=== PATIENT | female | born 1995 | race Caucasian/White ===

== ENCOUNTER 2016-10-17 10:06 | Emergency (ER) | payer MEDICAID ==
[2016-10-17 10:10] VITALS: RESP 20
--- NOTE | 2016-10-17 11:24 | C.PDOC ---
History Of Present Illness 21 yr old female with PMHx of depression presents to the ER c/o feeling depressed, not eating regularly, decreased sleeping and left upper abdominal pain for the past few days. Patient states she has kadie similar abdominal pain when she previously experienced depression/did not eat properly. Patient denies SI, HI, drug/alcohol use, chest pain, SOB, nausea or vomiting. Time Seen by Provider: 10/17/16 10:13 Chief Complaint (Nursing): Psychiatric Evaluation History Per: Patient History/Exam Limitations: no limitations Onset/Duration Of Symptoms: Days Suicide/Self Injury Attempted (Context): None Modifying Factor(s): None Severity: Mild Involuntary Hold By: None Past Medical History Reviewed: Historical Data, Nursing Documentation, Vital Signs Vital Signs: Last Vital Signs Temp 98.2 F 10/17/16 11:28 Pulse 80 10/17/16 11:28 Resp 20 10/17/16 11:28 BP 120/79 10/17/16 11:28 Pulse Ox 100 10/17/16 11:34 - Medical History PMH: No Chronic Diseases Family History: States: No Known Family Hx - Social History Hx Tobacco Use: No Hx Alcohol Use: No Hx Substance Use: Yes (marijuana) - Immunization History Hx Tetanus Toxoid Vaccination: Yes Hx Influenza Vaccination: Yes Hx Pneumococcal Vaccination: Yes Review Of Systems Except As Marked, All Systems Reviewed And Found Negative. Constitutional: Negative for: Fever, Chills Cardiovascular: Negative for: Chest Pain, Palpitations Respiratory: Negative for: Cough, Shortness of Breath Gastrointestinal: Negative for: Nausea, Vomiting Psych: Positive for: Depression. Negative for: Suicidal ideation, Withdrawal Physical Exam - Physical Exam Appears: Well, Non-toxic, No Acute Distress Skin: Warm, Dry, No Rash Head: Normacephalic Oral Mucosa: Moist Cardiovascular: Rhythm Regular Respiratory: Normal Breath Sounds, No Rales, No Rhonchi, No Wheezing Gastrointestinal/Abdominal: Normal Exam, Bowel Sounds, Soft, No Tenderness Extremity: Normal ROM, No Swelling Neurological/Psych: Oriented x3 ED Course And Treatment O2 Sat by Pulse Oximetry: 100 (RA ) Pulse Ox Interpretation: Normal Progress Note: Patient seen/evaluated by crisis counselor Rashad, and scheduled for outpatient psychiatric follow up. Patient understands follow up plan and that she should return to ED if her symptoms worsen. Reevaluation Time: 11:30 Reassessment Condition: Improved Disposition Counseled Patient/Family Regarding: Diagnosis, Need For Followup - Disposition Referrals: Tanmay Starr MD [Staff Provider] - Disposition: HOME/ ROUTINE Disposition Time: 11:30 Condition: STABLE Additional Instructions: FOLLOW UP WITH PSYCHIATRY SCHEDULED RETURN TO EMERGENCY ROOM IF YOU HAVE CONCERNING SYMPTOMS Instructions: Depression (ED) Forms: [employer] (Kuwaiti) Print Language: PASHTO - Clinical Impression Clinical Impression: Depression - Scribe Statement The provider has reviewed the documentation as recorded by the Jasibe Deneen Alves Provider Attestation: All medical record entries made by the Jasibcecy were at my direction and personally dictated by me. I have reviewed the chart and agree that the record accurately reflects my personal performance of the history, physical exam, medical decision making, and the department course for this patient. I have also personally directed, reviewed, and agree with the discharge instructions and disposition.
[2016-10-17 11:29] VITALS: BP 120/79; PULSE 80; TEMP 98.2
[2016-10-17 11:30] VITALS: O2SAT 100
== END 2016-10-17 11:31 | disposition home or self-care (01) ==
LOC: C.ER 10:06
DX: F32.89 Other specified depressive episodes (principal)

== ENCOUNTER 2017-02-12 09:23 | Emergency (ER) | payer MEDICAID ==
[2017-02-12] MEDS ORDERED: Sodium Chloride 0.9% 1,000 ML IV ONE (10:42)
[2017-02-12] MEDS ORDERED: Sodium Chloride 0.9% 1,000 ML ONE (10:48)
--- NOTE | 2017-02-12 10:53 | C.PDOC ---
History Of Present Illness 21 year old female presents to the ED c/o flu like symptoms, abdominal pain along with vomit that started yesterday. Patient reports she is currently being treated for URI. Patient denies fever, chills, back pain, dysuria, hematuria, back pain, CP, SOB. Time Seen by Provider: 02/12/17 09:55 Chief Complaint (Nursing): Flu-like Symptoms History Per: Patient History/Exam Limitations: no limitations Onset/Duration Of Symptoms: Days Current Symptoms Are (Timing): Still Present Location Of Pain: Diffuse Myalgias Sick Contacts (Context): None Associated Symptoms: Vomiting Severity: None Recent travel outside of the [place]: No Additional History Per: Patient Past Medical History Reviewed: Historical Data, Nursing Documentation, Vital Signs Vital Signs: Last Vital Signs Temp 98.4 F 02/12/17 12:12 Pulse 99 H 02/12/17 12:12 Resp 20 02/12/17 12:12 BP 100/65 02/12/17 12:12 Pulse Ox 99 02/12/17 12:12 - Medical History PMH: No Chronic Diseases Denies: Diabetes, Hepatitis, HIV, HTN, Seizures, Sexually Transmitted Disease Surgical History: No Surg Hx Family History: States: Unknown Family Hx - Social History Hx Tobacco Use: No Hx Alcohol Use: No Hx Substance Use: Yes (marijuana) - Immunization History Hx Tetanus Toxoid Vaccination: Yes Hx Influenza Vaccination: Yes Hx Pneumococcal Vaccination: Yes Review Of Systems Constitutional: Negative for: Fever, Chills Cardiovascular: Negative for: Chest Pain Respiratory: Negative for: Cough, Shortness of Breath Gastrointestinal: Positive for: Vomiting, Abdominal Pain Genitourinary: Negative for: Dysuria, Hematuria, Vaginal Discharge, Vaginal Bleeding Musculoskeletal: Negative for: Back Pain Skin: Negative for: Rash Neurological: Negative for: Weakness, Numbness Physical Exam - Physical Exam Appears: Non-toxic, No Acute Distress Skin: Normal Color, Warm, Dry Head: Atraumatic, Normacephalic Nose: No Discharge, No Deformity Oral Mucosa: Moist Neck: Normal ROM, Supple Chest: Symmetrical Cardiovascular: Rhythm Regular, No Murmur Respiratory: Normal Breath Sounds, No Rales, No Rhonchi, No Wheezing Gastrointestinal/Abdominal: Soft, No Tenderness, No Distention, No Rebound Extremity: Normal ROM, No Pedal Edema, No Calf Tenderness, No Swelling Neurological/Psych: Oriented x3, Normal Speech, Normal Cognition Gait: Steady ED Course And Treatment - Laboratory Results Result Diagrams: 02/12/17 11:03 02/12/17 11:06 Lab Interpretation: Normal Urine POC: Negative O2 Sat by Pulse Oximetry: 100 (On RA) Pulse Ox Interpretation: Normal Progress Note: Treated with IVF NSS, zofran and toradol. On re-evaluation abdomen soft non-tender Reassessment Condition: Improved Medical Decision Making Medical Decision Making: Impression : flu like symptoms Plan: * Blood work * IV fluids * Zofran 4 mg IVP * Toradol 30 mg IVP * UA On reevaluation patient states feeling much better, is stable for d/c and will be given instructions to follow up with PMD. Disposition Counseled Patient/Family Regarding: Studies Performed, Diagnosis, Need For Followup, Rx Given - Disposition Referrals: [facility] [Outside] [facility] [Outside] Disposition: HOME/ ROUTINE Disposition Time: 12:00 Condition: STABLE Prescriptions: Ondansetron ODT [Zofran ODT] 1 odt PO BID PRN #6 odt PRN Reason: Nausea/Vomiting Instructions: Acute Nausea and Vomiting (ED) Forms: [employer] (German) - POA Present On Arrival: None - Clinical Impression Clinical Impression: Nausea & vomiting - PA / HOUSING MANAGEMENT OFFICER / Resident Statement MD/DO has reviewed & agrees with the documentation as recorded. - Scribe Statement The provider has reviewed the documentation as recorded by the Scribe Patrick Woo All medical record entries made by the Scribe were at my direction and personally dictated by me. I have reviewed the chart and agree that the record accurately reflects my personal performance of the history, physical exam, medical decision making, and the department course for this patient. I have also personally directed, reviewed, and agree with the discharge instructions and disposition.
[2017-02-12 11:12] LABS: BASO # 0.1 K/uL (0.0-0.2); BASO % 0.5 % (0.0-2.0); EOS % 0.2 % (0.0-4.0); HEMATOCRIT 44.5 % (34.0-47.0); LYMPH # 0.3 K/uL (1.0-4.3); LYMPH % 2.4 % (20.0-40.0); MEAN CORPUSCULAR HEMOGLOBIN 29.9 pg (27.0-31.0); MEAN CORPUSCULAR HGB CONC 34.4 g/dL (33.0-37.0); MEAN PLATELET VOLUME 9.2 fL (7.2-11.7); MONO # 0.5 K/uL (0.0-0.8); MONO % 4.4 % (0.0-10.0); NRBC % 0.1 % (0.0-2.0); PLATELET COUNT 218 K/uL (130-400); RED CELL DISTRIBUTION WIDTH 12.1 % (11.5-14.5); WHITE BLOOD COUNT 10.6 K/uL (4.8-10.8)
[2017-02-12 11:25] LABS: ALB/GLOB RATIO 1.3 (1.0-2.1); ALKALINE PHOSPHATASE 69 U/L (38-126); ALT/SGPT 39 U/L (9-52); AST/SGOT 27 U/L (14-36); BILIRUBIN,TOTAL 0.8 mg/dL (0.2-1.3); BLOOD UREA NITROGEN 15 mg/dL (7-17); CALCIUM 9.1 mg/dl (8.6-10.4); CARBON DIOXIDE 30 mmol/L (22-30); CHLORIDE 103 mmol/L (98-107); GFR AFRICAN-AMERICAN > 60; GLUCOSE,RANDOM 111 mg/dL (65-105); POTASSIUM 3.7 mmol/L (3.6-5.2); SODIUM 140 mmol/L (132-148)
[2017-02-12 11:25] LABS: RBC URINE 2 /hpf (0-3); URINE BILIRUBIN NEGATIVE (NEGATIVE); URINE BLOOD NEGATIVE (NEGATIVE); URINE COLOR Yellow (YELLOW); URINE GLUCOSE (UA) NORMAL (Normal); URINE KETONE TRACE mg/dL (NEGATIVE); URINE LEUKOCYTE ESTERASE NEG Leu/uL (Negative); URINE PROTEIN NEGATIVE (NEGATIVE); URINE UROBILINOGEN NORMAL mg/dL (0.2-1.0); WBC URINE 1 /hpf (0-5)
[2017-02-12 11:55] LABS: BASOPHIL 1 % (0-2); NEUTROPHIL 84 % (50-75); TOTAL CELLS COUNTED 100
[2017-02-12 11:56] LABS: LARGE PLATELETS PRESENT
[2017-02-12 12:13] VITALS: BP 100/65; PULSE 99; RESP 20; TEMP 98.4
[2017-02-12 14:43] VITALS: O2SAT 100
== END 2017-02-12 12:12 | disposition home or self-care (01) ==
LOC: C.ER 09:23
DX: R11.2 Nausea with vomiting, unspecified (principal)
CPT/HCPCS: 80053; 81001; 83690; 84703; 85025; 96361; 96374; 96375; 99284; J1885; J2405; J7040

== ENCOUNTER 2018-04-26 16:05 | Emergency (ER) | payer MEDICAID ==
[2018-04-26] MEDS ORDERED: Sodium Chloride 0.9% 1,000 ML IV ONE ×3 (16:42→19:01)
[2018-04-26 16:54] LABS: HCG,QUALITATIVE URINE NEGATIVE (NEGATIVE); SQUAMOUS EPITHIAL 8 /hpf (0-5); URINE BACTERIA OCC (<OCC); URINE BILIRUBIN NEGATIVE (NEGATIVE); URINE BLOOD NEGATIVE (NEGATIVE); URINE CLARITY Hazy (Clear); URINE COLOR Yellow (YELLOW); URINE GLUCOSE (UA) NORMAL (Normal); URINE LEUKOCYTE ESTERASE NEG Leu/uL (Negative); URINE PROTEIN 1+ mg/dL (NEGATIVE); URINE UROBILINOGEN NORMAL mg/dL (0.2-1.0)
[2018-04-26 16:55] LABS: BASO # 0.1 K/uL (0.0-0.2); BASO % 0.8 % (0.0-2.0); EOS # 0.1 K/uL (0.0-0.7); EOS % 0.6 % (0.0-4.0); HEMOGLOBIN 15.8 g/dL (11.0-16.0); LYMPH # 0.5 K/uL (1.0-4.3); LYMPH % 3.3 % (20.0-40.0); MEAN CELL VOLUME 89.4 fL (81.0-99.0); MEAN CORPUSCULAR HEMOGLOBIN 29.3 pg (27.0-31.0); MEAN CORPUSCULAR HGB CONC 32.8 g/dL (33.0-37.0); MEAN PLATELET VOLUME 9.7 fL (7.2-11.7); MONO # 0.8 K/uL (0.0-0.8); MONO % 4.7 % (0.0-10.0); NEUT # 14.7 K/uL (1.8-7.0); NEUT % 90.6 % (50.0-75.0); PLATELET COUNT 197 K/uL (130-400); RBC 5.37 Mil/uL (3.80-5.20); RED CELL DISTRIBUTION WIDTH 12.6 % (11.5-14.5); WHITE BLOOD COUNT 16.2 K/uL (4.8-10.8)
[2018-04-26] MEDS ORDERED: Sodium Chloride 0.9% 1,000 ML ONE (16:57)
[2018-04-26] MEDS ORDERED: Iohexol 240 (50 ml) PO ONE (17:05)
[2018-04-26 17:07] LABS: ALB/GLOB RATIO 1.8 (1.0-2.1); ALBUMIN 5.2 g/dL (3.5-5.0); ALT/SGPT 13 U/L (9-52); AST/SGOT 26 U/L (14-36); BLOOD UREA NITROGEN 16 mg/dL (7-17); CALCIUM 9.6 mg/dl (8.6-10.4); GFR NON-AFRICAN AMERICAN > 60; LIPASE 45 U/L (23-300)
[2018-04-26] MEDS ORDERED: Iohexol 240 (50 ml) ONE (17:32)
[2018-04-26 18:02] LABS: LYMPHOCYTE 5 % (20-40); MONOCYTE 8 % (0-10); NEUTROPHIL 87 % (50-75); PLATELET ESTIMATE NORMAL (NORMAL); TOTAL CELLS COUNTED 100
--- NOTE | 2018-04-26 18:05 | C.PDOC ---
History Of Present Illness 23 year old female presents to ED with complaint of nausea, vomiting, and diarrhea over the past 2 days. Patient also complains of decreased PO intake and subjective fever. Patient denies any recent travel. She denies bilious vomit, hematemesis, and bloody diarrhea. <Alta GOODEDaniel - Last Filed: 04/26/18 18:02> History Per: Patient History/Exam Limitations: no limitations Onset/Duration Of Symptoms: Days (2) Current Symptoms Are (Timing): Still Present Associated Symptoms: Fever, Nausea, Vomiting, Diarrhea, Loss Of Appetite <Alta GOODEDaniel - Last Filed: 04/26/18 18:02> <Santos Pressley - Last Filed: 04/26/18 21:26> Time Seen by Provider: 04/26/18 16:22 Chief Complaint (Nursing): Abdominal Pain Past Medical History Reviewed: Historical Data, Nursing Documentation, Vital Signs Vital Signs: Last Vital Signs Temp 98.3 F 04/26/18 16:08 Pulse 120 H 04/26/18 16:08 Resp 20 04/26/18 16:08 BP 126/87 04/26/18 16:08 Pulse Ox 98 04/26/18 16:08 - Medical History PMH: Denies: Diabetes, Hepatitis, HIV, HTN, Seizures, Sexually Transmitted Disease Surgical History: No Surg Hx Family History: States: Unknown Family Hx - Social History Hx Tobacco Use: No Hx Alcohol Use: No Hx Substance Use: No - Immunization History Hx Tetanus Toxoid Vaccination: No Hx Influenza Vaccination: No Hx Pneumococcal Vaccination: No <Jesseniatesfaye GOODEDaniel - Last Filed: 04/26/18 18:02> Vital Signs: Last Vital Signs Temp 98.3 F 04/26/18 16:08 Pulse 90 04/26/18 18:47 Resp 17 04/26/18 18:47 BP 95/64 L 04/26/18 18:47 Pulse Ox 100 04/26/18 18:47 <Santos Pressley - Last Filed: 04/26/18 21:26> Review Of Systems Constitutional: Positive for: Fever. Negative for: Chills, Weakness Respiratory: Negative for: Cough Gastrointestinal: Positive for: Nausea, Vomiting, Diarrhea, Other (decreased PO intake). Negative for: Hematochezia, Hematemesis Neurological: Negative for: Weakness, Numbness, Dizziness <Daniel Holm DO Last Filed: 04/26/18 18:02> Physical Exam - Physical Exam Appears: Well, Non-toxic, No Acute Distress, Other (appears thin) Skin: Normal Color, Warm, Dry Head: Atraumatic, Normacephalic Neck: Normal ROM, Supple Chest: Symmetrical, No Deformity Cardiovascular: Rhythm Regular Respiratory: Normal Breath Sounds Gastrointestinal/Abdominal: Bowel Sounds, Soft, Tenderness (diffuse) Extremity: Normal ROM Neurological/Psych: Oriented x3, Normal Speech, Normal Cognition <Daniel Holm DO Last Filed: 04/26/18 18:02> ED Course And Treatment - Laboratory Results Result Diagrams: 04/26/18 16:51 04/26/18 16:51 Lab Results: Total Bilirubin 0.9 mg/dL (0.2-1.3) 04/26/18 16:51 AST 26 U/L (14-36) 04/26/18 16:51 ALT 13 U/L (9-52) 04/26/18 16:51 Alkaline Phosphatase 88 U/L (38-126) 04/26/18 16:51 Total Protein 8.0 g/dL (6.3-8.3) 04/26/18 16:51 Albumin 5.2 g/dL (3.5-5.0) H 04/26/18 16:51 Globulin 2.9 gm/dL (2.2-3.9) 04/26/18 16:51 Albumin/Globulin Ratio 1.8 (1.0-2.1) 04/26/18 16:51 Lipase 45 U/L (23-300) 04/26/18 16:51 Urine Color Yellow (YELLOW) 04/26/18 16:37 Urine Clarity Hazy (Clear) 04/26/18 16:37 Urine pH 5.0 (5.0-8.0) 04/26/18 16:37 Ur Specific [place] 1.030 (1.003-1.030) 04/26/18 16:37 Urine Protein 1+ mg/dL (NEGATIVE) H 04/26/18 16:37 Urine Glucose (UA) Normal mg/dL (Normal) 04/26/18 16:37 Urine Ketones 1+ mg/dL (NEGATIVE) H 04/26/18 16:37 Urine Blood Negative (NEGATIVE) 04/26/18 16:37 Urine Nitrate Negative (NEGATIVE) 04/26/18 16:37 Urine Bilirubin Negative (NEGATIVE) 04/26/18 16:37 Urine Urobilinogen Normal mg/dL (0.2-1.0) 04/26/18 16:37 Ur Leukocyte Esterase Neg Fe/uL (Negative) 04/26/18 16:37 Urine WBC (Auto) 2 /hpf (0-5) 04/26/18 16:37 Urine RBC (Auto) 1 /hpf (0-3) 04/26/18 16:37 Ur Squamous Epith Cells 8 /hpf (0-5) H 04/26/18 16:37 Urine Bacteria Occ (<OCC) H 04/26/18 16:37 Urine HCG, Qual Negative (NEGATIVE) 04/26/18 16:37 Urine HCG, Qual Negative (NEGATIVE) 04/26/18 16:37 O2 Sat by Pulse Oximetry: 98 (RA) <Daniel Holm DO - Last Filed: 04/26/18 18:02> - Laboratory Results Result Diagrams: 04/26/18 16:51 04/26/18 16:51 Lab Results: Total Bilirubin 0.9 mg/dL (0.2-1.3) 04/26/18 16:51 AST 26 U/L (14-36) 04/26/18 16:51 ALT 13 U/L (9-52) 04/26/18 16:51 Alkaline Phosphatase 88 U/L (38-126) 04/26/18 16:51 Total Protein 8.0 g/dL (6.3-8.3) 04/26/18 16:51 Albumin 5.2 g/dL (3.5-5.0) H 04/26/18 16:51 Globulin 2.9 gm/dL (2.2-3.9) 04/26/18 16:51 Albumin/Globulin Ratio 1.8 (1.0-2.1) 04/26/18 16:51 Lipase 45 U/L (23-300) 04/26/18 16:51 Urine Color Yellow (YELLOW) 04/26/18 16:37 Urine Clarity Hazy (Clear) 04/26/18 16:37 Urine pH 5.0 (5.0-8.0) 04/26/18 16:37 Ur Specific [place] 1.030 (1.003-1.030) 04/26/18 16:37 Urine Protein 1+ mg/dL (NEGATIVE) H 04/26/18 16:37 Urine Glucose (UA) Normal mg/dL (Normal) 04/26/18 16:37 Urine Ketones 1+ mg/dL (NEGATIVE) H 04/26/18 16:37 Urine Blood Negative (NEGATIVE) 04/26/18 16:37 Urine Nitrate Negative (NEGATIVE) 04/26/18 16:37 Urine Bilirubin Negative (NEGATIVE) 04/26/18 16:37 Urine Urobilinogen Normal mg/dL (0.2-1.0) 04/26/18 16:37 Ur Leukocyte Esterase Neg Fe/uL (Negative) 04/26/18 16:37 Urine WBC (Auto) 2 /hpf (0-5) 04/26/18 16:37 Urine RBC (Auto) 1 /hpf (0-3) 04/26/18 16:37 Ur Squamous Epith Cells 8 /hpf (0-5) H 04/26/18 16:37 Urine Bacteria Occ (<OCC) H 04/26/18 16:37 Urine HCG, Qual Negative (NEGATIVE) 04/26/18 16:37 Urine HCG, Qual Negative (NEGATIVE) 04/26/18 16:37 - CT Scan/US CT abd/pelvis Other Rad Studies (CT/US): Read By Radiologist, Radiology Report Reviewed CT/US Interpretation: EXAM: CT Abdomen and Pelvis with IV and oral contrast. CLINICAL HISTORY: Diffuse abd pain. TECHNIQUE: Axial computed tomography images of the abdomen and pelvis with intravenous contrast. 0.00 mGy-cm. CONTRAST: With; OMNI 240 & 100MLS VISI 320. COMPARISON: None provided. FINDINGS: LUNG BASES: The lung bases appear clear. No pleural effusions are seen. LIVER: Unremarkable. GALLBLADDER AND BILE DUCTS: The gallbladder appears within normal limits. No radioopaque gallstones are seen. No biliary ductal dilatation is evident. PANCREAS: Unremarkable. SPLEEN: Unremarkable. ADRENAL GLANDS: Unremarkable. KIDNEYS, URETERS, AND BLADDER: The kidneys appear within normal limits. There is no hydronephrosis or hydroureter. No urinary calculi are seen. The urinary bladder appeared normal in size and configuration. STOMACH AND BOWEL: There is mucosal wall thickening identified in the gastric antrum as well as small and large bowel compatible with gastritis and enterocolitis. No evidence of bowel obstruction. APPENDIX: No evidence of acute appendicitis on CT examination. PERITONEUM: No free fluid. No free air. LYMPH NODES: No lymphadenopathy is evident. REPRODUCTIVE: Left ovarian 2 cm cyst is seen. The uterus and ovaries are otherwise normal. VASCULATURE: No evidence of abdominal aortic aneurysm. BONES: No aggressive appearing osseous lesion. No acute osseous pathology evident. IMPRESSION: 1. Left ovarian 2 cm cyst. 2. Gastritis and enterocolitis. Consider follow up with upper endoscopy and colonoscopy. . Electronically signed on Apr 26, 2018 8:28:52 PM EST by: Daniel Cruz M.D., PATTI Certified By ABR & CBCCT. Fellowship Trained MRI and CT Specialist. <Santos Pressley - Kenny Filed: 04/26/18 21:26> Medical Decision Making Medical Decision Making: Impression: 23 year old with nausea, vomiting, and diarrhea Plan: Labs ordered with UA and flu a/b. Abdomen/Pelvis CT ordered for patient. Patient given Pepcid IVP, IV fluids, and Zofran IVP. <Daniel Holm DO - Last Filed: 04/26/18 18:02> Disposition <Daniel Holm DO - Filed: 04/26/18 18:02> Counseled Patient/Family Regarding: Diagnosis - Disposition Disposition Time: 21:20 - POA Present On Arrival: None <Santos Pressley - Last Filed: 04/26/18 21:26> - Disposition Referrals: [facility] [Outside] Disposition: HOME/ ROUTINE Condition: STABLE Prescriptions: Ciprofloxacin HCl [Cipro] 250 mg PO BID #14 tablet Dicyclomine [Bentyl] 10 mg PO TID #20 cap Ondansetron ODT [Zofran ODT] 1 odt PO BID PRN #6 odt PRN Reason: Nausea/Vomiting Instructions: Inflammatory Bowel Disease Forms: [employer] (Icelandic) - Clinical Impression Clinical Impression: Abdominal pain, Inflammatory bowel disease, Gastroenteritis - Scribe Statement The provider has reviewed the documentation as recorded by the Scribe (Eden Gardner) All medical record entries made by the Scribe were at my direction and personally dictated by me. I have reviewed the chart and agree that the record accurately reflects my personal performance of the history, physical exam, medical decision making, and the department course for this patient. I have also personally directed, reviewed, and agree with the discharge instructions and disposition. <Daniel Holm DO - Last Filed: 04/26/18 18:02>
[2018-04-26] MEDS ORDERED: Iodixanol 320 MG/ML 100 ML BOTTLE IV ONE (18:14)
[2018-04-26 21:42] VITALS: BP 116/78; PULSE 96; RESP 16; TEMP 98.9; O2SAT 99
--- NOTE | 2018-04-27 10:46 | CT ---
Date of service: 04/26/2018 PROCEDURE: CT Abdomen and Pelvis with contrast HISTORY: Diffuse abdominal pain COMPARISON: None available. TECHNIQUE: CT scan of the abdomen and pelvis was performed after administration of intravenous contrast. Oral contrast was administered. Coronal and sagittal reformatted images were obtained. Contrast dose: 100 mL Visipaque 320 Radiation dose: Total exam DLP = 254.59 mGy-cm. This CT exam was performed using one or more of the following dose reduction techniques: Automated exposure control, adjustment of the mA and/or kV according to patient size, and/or use of iterative reconstruction technique. FINDINGS: LOWER THORAX: The visualized lungs are clear. LIVER: Normal in size with homogeneous enhancement. No gross lesion or ductal dilatation. GALLBLADDER AND BILE DUCTS: Well distended. No calcified gallstones, wall thickening or pericholecystic fluid. PANCREAS: Normal in size with homogeneous enhancement. No gross lesion or ductal dilatation. SPLEEN: Mild splenomegaly. Normal homogeneous enhancement. ADRENALS: No discrete nodule. KIDNEYS AND URETERS: Normal in size with homogeneous enhancement. No hydronephrosis. No solid mass. VASCULATURE: No aortic aneurysm. There are no aortic atherosclerotic calcifications or mural plaque present. BOWEL: The small bowel loops are normal in caliber. There is apparent circumferential mural thickening and target appearance of proximal small bowel loops. The distal small bowel loops are normal in caliber. The colon is unremarkable. APPENDIX: Normal appendix. PERITONEUM: No free fluid. No free air. LYMPH NODES: Subcentimeter mesenteric lymph nodes at the root of the mesentery, likely reactive. BLADDER: Well distended and normal in appearance. REPRODUCTIVE: The uterus is normal in size. There is a 2.6 x 1.7 cm cyst with rim enhancement in the left ovary. BONES: No acute fracture. Within normal limits for the patient's age. OTHER FINDINGS: None. IMPRESSION: Apparent circumferential mural thickening and target appearance of proximal small bowel loops most compatible with acute nonspecific infectious/inflammatory enteritis. No bowel obstruction. A preliminary report was provided by [facility].
== END 2018-04-26 21:46 | disposition home or self-care (01) ==
LOC: C.ER 16:05
DX: K52.9 Noninfective gastroenteritis and colitis, unspecified (principal); R10.9 Unspecified abdominal pain
CPT/HCPCS: 74177; 80053; 81001; 83690; 84703; 85025; 87804; 96361; 96374; 96375; 99285; J2405; J7030; Q9966; Q9967